=== PATIENT | female | born 1985 | race Caucasian/White ===

== ENCOUNTER 2018-10-09 08:00 | Outpatient (CLI) | payer OTHER ==
[2018-10-09 19:32] LABS: BASOPHILS % (AUTO) 0.3 %; EOSINOPHILS % (AUTO) 0.4 %; HGB - HEMOGLOBIN 11.7 g/dL (12.0-16.0); LYMPHOCYTES # (AUTO) 1.7 10^3/uL (1.5-3.5); LYMPHOCYTES % (AUTO) 22.9 %; MEAN CORPUSCULAR HEMOGLOBIN 31.5 pg (27.0-31.0); MEAN CORPUSCULAR HGB CONC 32.6 g/dL (32.0-36.0); MEAN CORPUSCULAR VOLUME 96.5 fL (81.0-99.0); MEAN PLATELET VOLUME 10.6 fL (7.9-10.8); MONOCYTES # (AUTO) 0.5 10^3/uL (0.0-1.0); MONOCYTES % (AUTO) 6.8 %; NEUTROPHILS % (AUTO) 68.8 %; PLT - PLATELET COUNT 236 10^3/uL (130-450); RED BLOOD COUNT 3.72 10^6/uL (4.20-5.40); RED CELL DISTRIBUTION WIDTH 12.6 % (12.0-15.0); WHITE BLOOD COUNT 7.2 x10^3/uL (4.8-10.8)
[2018-10-09 19:34] LABS: BILIRUBIN,URINE NEGATIVE (NEGATIVE); GLUCOSE, URINE (UA) NEGATIVE (NEGATIVE); KETONES,URINE (UA) NEGATIVE (NEGATIVE); LEUKOCYTE ESTERASE, URINE NEGATIVE (NEGATIVE); NITRITE,URINE NEGATIVE (NEGATIVE); OCCULT BLOOD,URINE NEGATIVE (NEGATIVE); PROTEIN,URINE NEGATIVE (NEGATIVE); UROBILINOGEN,URINE 0.2 (NORMAL) E.U./dL (NORMAL)
[2018-10-09 19:39] LABS: CLARITY,URINE CLEAR (CLEAR)
[2018-10-09 20:37] LABS: % IRON SATURATION 21 % (20-50); IRON 118 ug/dL (28-170); TOTAL IRON BINDING CAPACITY 570 ug/dL (250-450); TRANSFERRIN 407 mg/dL (192-382)
== END 2018-10-09 08:01 | disposition home or self-care (01) ==
LOC: LAB.WCP 08:00
PROVIDERS: ATTEND Nurse Practitioner Obstetrics & Gynecology
DX: Z36.89 Encounter for other specified antenatal screening (principal); Z33.1 Pregnant state, incidental; D50.9 Iron deficiency anemia, unspecified
CPT/HCPCS: 36415; 81001; 81003; 82728; 82950; 83540; 84466; 85025; 86850; 87086

== ENCOUNTER 2018-12-25 06:30 | Outpatient (CLI) | payer OTHER ==
[2018-12-25 07:05] VITALS: BP 123/80
--- NOTE | 2019-01-02 12:22 | PROVIDER PROGRESS NOTE ---
- HPI Chief Complaint: Labor Check Current : Current EDU 12/21/18 Gestation 40 Weeks and 4 Days 2 Para 1 Vital Signs Temperature 36.6 C 12/25/18 07:03 Heart Rate 98 12/25/18 07:03 Respiratory Rate 12/25/18 07:03 Blood Pressure 123/80 12/25/18 07:03 O2 Saturation 100 12/25/18 07:03 Temperature 36.6 C 12/25/18 07:03 Heart Rate 98 12/25/18 07:03 Respiratory Rate 12/25/18 07:03 Blood Pressure 123/80 12/25/18 07:03 O2 Saturation 100 12/25/18 07:03 - Procedures OB Procedure Performed: NST NST Procedure: NST Procedure Start Date 12/25/18 Start Time 06:40 Stop Time 07:30 Vibroacoustic Stimulation Used No Patient States Movement Yes Findings: Pt was scheduled for induction of Labor but because of a busy L&D unit decided to postpone induction for PM. Pt under stands and agrees.
== END 2018-12-25 07:40 | disposition home or self-care (01) ==
LOC: WFO 06:30 → FBP 06:47 → WFO 07:40
PROVIDERS: ATTEND Obstetrics & Gynecology
DX: O48.0 Post-term pregnancy (principal); Z3A.40 40 weeks gestation of pregnancy
CPT/HCPCS: 59025

== ENCOUNTER 2018-12-25 18:00 | Inpatient (IN) | payer OTHER ==
[2018-12-25] MEDS ORDERED: ONDANSETRON 4 MG/2 ML VIAL IVP PRN (19:09)
[2018-12-25] MEDS ORDERED: METOCLOPRAMIDE 10 MG/2 ML VIAL IVP PRN (19:09)
[2018-12-25] MEDS ORDERED: AMPICILLIN 2 GM in SODIUM CHLORIDE 0.9% MINIBAG 100 ML IV ONE (19:09)
[2018-12-25] MEDS ORDERED: METHYLERGONOVINE 0.2 MG/ML AMP IM PRN (19:09)
[2018-12-25] MEDS ORDERED: OXYTOCIN/DEXTROSE 5 % 30 UNIT/500 ML BAG IV PRN (19:09)
[2018-12-25] MEDS ORDERED: miSOPROStol 200 MCG TABLET PR ONE (19:09)
[2018-12-25] MEDS ORDERED: CARBOPROST TROMETHAMINE 250 MCG/ML AMP IM PRN (19:09)
[2018-12-25] MEDS ORDERED: fentaNYL 100 MCG/2 ML VIAL IVP PRN (19:09)
[2018-12-25] MEDS ORDERED: SODIUM CHLORIDE FLUSH 0.9% 10 ML SYRINGE IVP PRN (19:09)
[2018-12-25] MEDS ORDERED: METOCLOPRAMIDE 10 MG TABLET PO PRN (19:09)
[2018-12-25] MEDS ORDERED: ONDANSETRON ODT 4 MG TABLET TL PRN (19:09)
[2018-12-25] MEDS ORDERED: miSOPROStol 200 MCG TABLET PR PRN (19:09)
--- NOTE | 2018-12-25 19:15 | HISTORY & PHYSICAL EXAMINATION ---
Admit History - Visit Reason Visit Reason: Other - : 2 Parity: 1 Risk/History: positive: None Complications This : positive: Treated for GBS/UTI Smoking Status: Former smoker - Mother's Labs Mother's Blood Type: positive: A Mother's RH: positive: Positive GBS: positive: Group B Strep Positive Rubella Status: positive: Immune - Other Maternal History Other Maternal History: Patient is a 33-year-old G2, P1 at 40 weeks 4 days estimated gestational age with a complicated by GBS bacteriuria. Patient presents for an induction of labor for postdates. has been complicated by GBS bacteriuria. Otherwise no significant complications. Has had a history of x1 after induction of labor at 41 weeks. No history of STIs. Denies vaginal bleeding/contractions/loss of fluid. Endorses movement. Review of Systems - Other Findings Other Findings: As per HPI otherwise remaining systems are negative. Physical - Abdominal Exam Contraction Intensity: positive: Irritability Uterine Resting Tone: positive: Soft - Monitoring Strip Review: positive: Category I - Presentation Presentation: positive: Vertex - Vaginal Exam Membranes: positive: Membranes intact Dilation (in cm): 1 Station: positive: -2 Cervical Position: positive: Midposition - Speculum Exam Speculum Exam Performed: positive: No - Other Notes Labor Progress Note/Additional Text: SVE 1/40%/-2/mid/medium Vertex confirmed by bedside ultrasound. Plan for Labor - Plan For Labor Plan for Labor: 33-year-old G2, P1 at 40 weeks 4 days EGA here for postdates induction of labor. IOL: -Unfavorable cervix at 1/40%/-2/medium/mid -We will proceed with cervical ripening with misoprostol 50 mcg BC every 4 hours for up to 6 doses. -Reviewed role in application of Holt balloon. Patient has had this experience in the past. Will place once cervix more favorable. -Pitocin once cervix is more favorable. Reviewed risks and benefits. -AROM when GBS prophylaxis is adequate/timing is appropriate. -Risks/benefits/alternatives reviewed. Written informed consent was obtained. FWB: -Category 1 tracing -Vertex -GBS positive; ampicillin per GBS PPX protocol -Denies history of HSV Pain: -Fentanyl 50 mcg IV available up to 7 cm dilated and not to exceed 200 mcg total. -Nitrous oxide as patient desires -Epidural as patient desires Anticipate
[2018-12-25] MEDS ORDERED: OXYTOCIN/DEXTROSE 5 % 30 UNIT/500 ML BAG IV SCH (20:00)
[2018-12-25] MEDS: miSOPROStol 100 MCG TABLET BC SCH (20:53)
[2018-12-25 21:04] LABS: BASOPHILS % (AUTO) 0.3 %; EOSINOPHILS # (AUTO) 0.1 10^3/uL (0.0-0.7); EOSINOPHILS % (AUTO) 0.6 %; HGB - HEMOGLOBIN 12.3 g/dL (12.0-16.0); LYMPHOCYTES # (AUTO) 2.1 10^3/uL (1.5-3.5); LYMPHOCYTES % (AUTO) 23.6 %; MEAN CORPUSCULAR HEMOGLOBIN 31.5 pg (27.0-31.0); MEAN CORPUSCULAR HGB CONC 34.6 g/dL (32.0-36.0); MEAN CORPUSCULAR VOLUME 91.3 fL (81.0-99.0); MONOCYTES # (AUTO) 0.6 10^3/uL (0.0-1.0); MONOCYTES % (AUTO) 6.4 %; NEUTROPHILS % (AUTO) 68.3 %; PLT - PLATELET COUNT 208 10^3/uL (130-450); RED CELL DISTRIBUTION WIDTH 12.9 % (12.0-15.0); WHITE BLOOD COUNT 8.7 x10^3/uL (4.8-10.8)
[2018-12-26] MEDS ORDERED: SODIUM CHLORIDE FLUSH 0.9% 10 ML SYRINGE IVP SCH (01:00)
[2018-12-26] MEDS: miSOPROStol 100 MCG TABLET BC SCH ×2 (01:10→05:00)
[2018-12-26] MEDS: AMPICILLIN 1 GM in SODIUM CHLORIDE 0.9% MINIBAG 100 ML IV SCH ×6 (01:10→21:48)
--- NOTE | 2018-12-26 09:16 | PROVIDER PROGRESS NOTE ---
Labor Progress Note - Uterine Monitoring : 2-3 Contraction Intensity: positive: Moderate - Monitoring Monitor Mode: positive: External ultrasound Heart Rate Baseline: 145 Heart Rate Variability: positive: Moderate (6-25 bmp) Accelerations: positive: Present, 15x15 Decelerations: positive: None Strip Review: positive: Category I - Vaginal Exam Dilation (in cm): 3 Effacement (%): 23 Station: -3 Cervical Position: Posterior - Labor Progress Note Labor Progress Note/Additional Text: Cx is 3 cm. jesica every 2-3 min. not able to repeat cytotec. Start pitocin.
[2018-12-26] MEDS ORDERED: OXYTOCIN/DEXTROSE 5 % 30 UNIT/500 ML BAG IV SCH (10:00)
[2018-12-26] MEDS: LACTATED RINGERS 1,000 ML IV SCH ×3 (10:55→20:06)
--- NOTE | 2018-12-26 12:31 | PROVIDER PROGRESS NOTE ---
Labor Progress Note - Uterine Monitoring Uterine Monitoring Mode: positive: External toco Contraction Frequency (min/apart): 3 Contraction Intensity: positive: Moderate Uterine Resting Tone: positive: Soft - Monitoring Heart Rate Baseline: 135 Heart Rate Variability: positive: Moderate (6-25 bmp) Accelerations: positive: Present, 15x15 Decelerations: positive: None Strip Review: positive: Category I - Vaginal Exam Dilation (in cm): 3 Effacement (%): 50 Station: -3 Cervical Position: Posterior - Labor Progress Note Labor Progress Note/Additional Text: Not able to AROM.
[2018-12-26] MEDS ORDERED: fent/BUPIV 2 MCG/0.125% 250 ML EP ONE (15:50)
[2018-12-26] MEDS ORDERED: diphenhydrAMINE INJ 50 MG/ML VIAL IVP PRN (16:33)
[2018-12-26] MEDS ORDERED: ePHEDrine 50 MG/ML VIAL IVP PRN (16:33)
[2018-12-26] MEDS ORDERED: NALBUPHINE 10 MG/ML AMP IVP PRN (16:33)
[2018-12-26] MEDS ORDERED: LACTATED RINGERS 500 ML IV ONE (16:33)
[2018-12-26] MEDS ORDERED: METOCLOPRAMIDE 10 MG/2 ML VIAL IVP PRN (16:33)
[2018-12-26] MEDS ORDERED: ONDANSETRON 4 MG/2 ML VIAL IVP PRN (16:33)
[2018-12-26] MEDS ORDERED: NALOXONE 0.4 MG/ML VIAL IVP PRN (16:33)
[2018-12-26] MEDS ORDERED: fent/BUPIV 2 MCG/0.125% 250 ML EP PRN (16:34)
--- NOTE | 2018-12-26 16:38 | ANESTHESIA ---
Pre-Anesthesia VS, & Labs - Diagnosis Active labor/pain - Procedure Continuous labor epidural Height 5 ft 6 in Weight (kg) 75.75 kg - NPO Other (ice chips) - Is Patient ?: Yes - Lab Results Current Lab Results: Laboratory Tests 12/25/18 20:40: WBC 8.7, RBC 3.90 L, Hgb 12.3, Hct 35.6 L, MCV 91.3, MCH 31.5 H, MCHC 34.6, RDW 12.9, Plt Count 208, MPV 11.0 H, Neut # (Auto) 6.0, Lymph # (Auto) 2.1, [place] # (Auto) 0.6, Eos # (Auto) 0.1, Baso # (Auto) 0.0, Absolute Nucleated RBC 0.00, Nucleated RBC % 0.0 Fish Bones: 12/25/18 20:40 Home Medications and Allergies Active Medications Carboprost Tromethamine (Hemabate) 250 mcg IM ONCE PRN PRN Reason: Post- Hemorrhage Stop: 12/26/18 19:08 Diphenhydramine HCl (Benadryl Inj) 12.5 - 25 mg IVP Q6HR PRN PRN Reason: ITCHING Ephedrine Sulfate () 5 mg IVP Q5M PRN PRN Reason: For SBP<100;give until SBP>100 Fentanyl (Fentanyl) 50 mcg IVP Q1H PRN PRN Reason: PAIN Ampicillin Sodium 1 gm/ Sodium (Chloride) 100 mls @ 200 mls/hr IV Q4H [facility] Last Admin: 12/26/18 13:31 Dose: 200 mls/hr Lactated Ringer's (Lr) 1,000 mls @ 100 mls/hr IV .Q10H [facility] Last Admin: 12/26/18 16:21 Dose: 100 mls/hr OXYTOCIN/DEXTROSE 5 % (Pitocin/Dextrose 5%) 30 unit in 500 mls @ 1 mls/hr IV TITR MADELAINE; Protocol OXYTOCIN/DEXTROSE 5 % (Pitocin/Dextrose 5%) 30 unit in 500 mls @ 999 mls/hr IV PRN PRN; Protocol PRN Reason: POST- HEMORR PREVENTION OXYTOCIN/DEXTROSE 5 % (Pitocin/Dextrose 5%) 30 unit in 500 mls @ 1 mls/hr IV TITR [facility]; Protocol Last Titration: 12/26/18 16:34 Dose: 10 milliunit/min, 10 mls/hr Lactated Ringer's (Lr) 500 mls @ 999 mls/hr IV ONCE ONE Stop: 12/26/18 17:03 Methylergonovine Maleate (Methergine Inj) 0.2 mg IM Q4H PRN PRN Reason: Post- Hemorrhage Metoclopramide HCl (Reglan) 5 mg PO Q6H PRN PRN Reason: Nausea / Vomiting Metoclopramide HCl (Reglan Inj) 5 mg IVP Q6H PRN PRN Reason: Nausea / Vomiting Metoclopramide HCl (Reglan Inj) 10 mg IVP Q6HR PRN PRN Reason: Nausea / Vomiting Misoprostol (Cytotec) 50 mcg BC Q4HR [facility] Stop: 12/26/18 17:01 Last Admin: 12/26/18 05:00 Dose: 50 mcg Misoprostol (Cytotec) 800 mcg FL ONCE PRN PRN Reason: Post- Hemorrhage Stop: 12/26/18 19:08 Nalbuphine HCl (Nubain) 2.5 - 5 mg IVP Q4H PRN PRN Reason: ITCHING Naloxone HCl (Narcan) 0.1 mg IVP Q2M PRN PRN Reason: RR<8 Ondansetron HCl (Zofran Inj) 4 mg IVP Q4HR PRN PRN Reason: Nausea / Vomiting Ondansetron HCl (Zofran Odt) 4 mg TL Q4HR PRN PRN Reason: Nausea / Vomiting Ondansetron HCl (Zofran Inj) 4 mg IVP Q6HR PRN PRN Reason: Nausea / Vomiting Sodium Chloride (Normal Saline Flush 0.9%) 10 ml IVP 0100,0900,1700 [facility] Last Admin: 12/26/18 09:15 Dose: 10 ml Sodium Chloride (Normal Saline Flush 0.9%) 10 ml IVP PRN PRN PRN Reason: NEEDED PER PROVIDER ORDERS Allergies/Adverse Reactions: Allergies Allergy/AdvReac Type Severity Reaction Status Date / Time No Known Drug Allergies Allergy Verified 12/25/18 20:11 Anes History & Medical History - Anesthetic History Anesthesia Complications: reports: No previous complications Family history of Anesthesia Complications: Denies Family history of Malignant Hyperthermia: Denies - Medical History Cardiovascular: reports: None Pulmonary: reports: None Gastrointestinal: reports: None Urinary: reports: None Neuro: reports: None Musculoskeletal: reports: None Endocrine/Autoimmune: reports: None Blood Disorders: reports: None Smoking Status: Former smoker Psychosocial: reports: No issues indicated - Obstetrical History : 2 Parity: 1 Events: positive: None Complications: positive: Treated for GBS/UTI Exam General: Alert, Oriented x3, Mild distress Dental: WNL Mouth Opening: Greater than 4 Fingerbreadths Neck Mobility: Normal Mallampati classification: II Thyromental Distance: greater than 6 cm Respiratory: Lungs clear Cardiovascular: Regular rate Neurological: Normal speech Mental/Cognitive Status: Alert/Oriented X3, Normal for patient Cognitive Status: Within normal limits Plan Anesthesia Type: Epidural Consent for Procedure(s) Verified and Reviewed: Yes Code Status: Attempt Resuscitation ASA classification: 2-Mild systemic disease Is this case an emergency?: Yes
--- NOTE | 2018-12-26 17:03 | PROVIDER PROGRESS NOTE ---
Labor Progress Note - Uterine Monitoring Contraction Intensity: positive: Moderate to strong Uterine Resting Tone: positive: Soft - Monitoring Monitor Mode: positive: External ultrasound Heart Rate Baseline: 130 Heart Rate Variability: positive: Moderate (6-25 bmp) Accelerations: positive: Present, 15x15 Decelerations: positive: Variable Strip Review: positive: Category I - Vaginal Exam Dilation (in cm): 4 Effacement (%): 30 Station: -3 Cervical Position: Posterior - Labor Progress Note Labor Progress Note/Additional Text: blabber full SROM clear. Epidural working.
[2018-12-26] MEDS ORDERED: TERBUTALINE 1 MG/ML VIAL SUBQ ONE (20:22)
--- NOTE | 2018-12-26 20:37 | PROVIDER PROGRESS NOTE ---
Labor Progress Note - Uterine Monitoring Uterine Monitoring Mode: positive: External toco : 6 Contraction Intensity: positive: Moderate to strong Uterine Resting Tone: positive: Soft - Monitoring Monitor Mode: positive: External ultrasound Heart Rate Baseline: 130 Accelerations: positive: Absent Decelerations: positive: Late Strip Review: positive: Category II (deceleration down to the 90 for 1 min. times 2. pit off. terbutaline 0.25, O2, bolis. prolaps cord ruled out.) - Labor Progress Note Labor Progress Note/Additional Text: decelerations resolved acceleration returning.
--- NOTE | 2018-12-26 21:50 | PROVIDER PROGRESS NOTE ---
Labor Progress Note - Uterine Monitoring : 2 Contraction Intensity: positive: Strong Uterine Resting Tone: positive: Soft - Monitoring Monitor Mode: positive: External ultrasound Heart Rate Baseline: 130 Heart Rate Variability: positive: Moderate (6-25 bmp) Accelerations: positive: Present, 15x15 Decelerations: positive: None Strip Review: positive: Category I - Vaginal Exam Dilation (in cm): 8 Effacement (%): 100 Station: 0 Cervical Position: Anterior - Labor Progress Note Labor Progress Note/Additional Text: excellent progress not on Pit
[2018-12-26] MEDS ORDERED: HYDROCORTISONE 1% CREAM 28 GM TUBE PR PRN (23:06)
[2018-12-26] MEDS ORDERED: WITCH HAZEL/GLYCERIN 1 PAD TOP PRN (23:06)
[2018-12-26] MEDS ORDERED: oxyCODONE 5 MG TABLET PO PRN (23:06)
--- NOTE | 2018-12-26 23:14 | DELIVERY NOTE ---
Delivery Note - Labor Labor: positive: Augmented by oxytocin - Infant Delivery Method Delivery Method: positive: Spontaneous vaginal delivery - Cervical Ripening Method Cervical Ripening Method: positive: Misoprostil - Presentation Presentation: positive: Vertex, [place] - right occiput anterior, ROP - right occiput posterior - Nuchal Cord Nuchal Cord: positive: None - Anesthetic Anesthetic Type: Volume: positive: Other (10) - Amniotic Fluid Description Amniotic Fluid Description: positive: Clear - Vacuum Use Indication for Vacuum Use: positive: Suspicion of immediate or potential compromise Type of Vacuum Cup: positive: Cup: Reddy Type Vacuum Extraction: positive: Successful Number of pop-offs: 0 - Episiotomy Type Episiotomy Type: positive: Midline (second degree) - Suture Suture Type: positive: Vicryl Suture Size: positive: 3-0 - Delivery Outcome Delivery Outcome: positive: Livebirth - : positive: Placed in direct skin contact with mother, Bulb syringe, Stimulated, [place] used sex: positive: Female (Apgars 8/9) - Cord Cord: positive: 3 vessels - Placenta Placenta: positive: Intact, Spontaneous, Abnormal (biloabed) - Post Delivery Events Post Delivery Events: positive: Shoulder dystocia (4 min, Mc Hyde, suprapubic pressure, episotomy delivery.) - Delivery Comments (Free Text/Narrative) Delivery Comments (Free Text/Narrative): Pt SROM at 1650 clear fluid. Pt had an episode of tachysystoly with bradycardia. responded to terb, stop pit and O2. continued with reactive strip to complete. with pushing developed bardycardia to the 90. At +3 a vacuum was applied to shorten the second stage Pulled with 3 contractions and good progress. Head delivered and a shoulder dystocia of 4 min encountered. following Mc [place], supra pubic pressure, an episotomy was cut. the left shoulder was delivered. care was taken to minimize traction to the left shoulder. delivery was compleated at 1039. Placent followed at 1046. second degree was closed with 3 0 vicril. EBL 300 ml.
[2018-12-26] MEDS ORDERED: LACTATED RINGERS 1,000 ML IV SCH (23:45)
[2018-12-27] MEDS: ACETAMINOPHEN 325 MG TABLET PO PRN ×4 (00:52→18:10)
[2018-12-27] MEDS: IBUPROFEN 600 MG TABLET PO SCH ×4 (00:52→20:23)
[2018-12-27] MEDS: DOCUSATE SODIUM 100 MG CAPSULE PO PRN ×2 (11:22→20:24)
--- NOTE | 2018-12-27 18:04 | PROVIDER PROGRESS NOTE ---
Subjective - Prog Note Date Prog Note Date: 12/27/18 Prog Note Time: 12:00 - Subjective Subjective: PPD#1 s/p Doing very well. Up and ambulating. Tolerating po. Pain well managed. Voiding. No complaints Objective - Vital Signs/Intake & Output Vital Signs: Vital Signs x48h Temp Pulse Resp BP Pulse Ox 12/27/18 15:39 98.4 F 77 18 110/68 99 12/27/18 12:29 98.2 F 89 19 116/84 H 99 Intake & Output: Intake & Output 12/24/18 12/25/18 12/26/18 12/27/18 23:59 23:59 23:59 23:59 Intake Total 100 3079.599 1688.734 Output Total 775 400 Balance 100 2304.599 1288.734 - Objective General Appearance: positive: No acute distress Neck: positive: Nml inspection Respiratory: positive: Chest non-tender, No respiratory distress Cardiovascular: positive: Regular rate & rhythm Abdomen: positive: Non-tender, Other (FF below umbi) Back: positive: Nml inspection Skin: positive: Color nml Extremities: positive: Non-tender - Lab Results Fish Bones: 12/25/18 20:40 - Other Results/Comments Other Results/Comments: PPD#1 s/p Routine pp care Late pm delivery Anticipate DC home in am
[2018-12-28] MEDS: ACETAMINOPHEN 325 MG TABLET PO PRN ×2 (04:13→08:06)
[2018-12-28] MEDS: IBUPROFEN 600 MG TABLET PO SCH ×2 (04:14→10:30)
[2018-12-28] MEDS: DOCUSATE SODIUM 100 MG CAPSULE PO PRN (08:06)
--- NOTE | 2018-12-28 08:21 | PROVIDER PROGRESS NOTE ---
Subjective - Prog Note Date Prog Note Date: 12/28/18 Prog Note Time: 08:18 - Subjective Subjective: Rae is doing well. No issues with pain. Minimal lochia. Voiding and ambulating. Tolerating po. BF going well. Ready for discharge. Objective - Vital Signs/Intake & Output Vital Signs: Vital Signs x48h Temp Pulse Resp BP 12/28/18 06:22 98.2 F 76 16 116/65 12/28/18 04:41 98.1 F 72 18 112/66 12/28/18 01:00 98.4 F 78 18 118/72 Intake & Output: Intake & Output 12/25/18 12/26/18 12/27/18 12/28/18 23:59 23:59 23:59 23:59 Intake Total 100 3079.599 2188.734 500 Output Total 775 400 Balance 100 2304.599 1788.734 500 - Objective General Appearance: positive: No acute distress Neck: positive: Nml inspection Respiratory: positive: No respiratory distress Cardiovascular: positive: Regular rate & rhythm Rectal: positive: Non-tender, Other (FF below umbi) Back: positive: Nml inspection Skin: positive: Color nml Extremities: positive: Non-tender - Lab Results Fish Bones: 12/25/18 20:40 Assessment/Plan - Problem List (1) Vaginal delivery Impression: PPD#2 s/p Meeting goals for discharge Routine dc instructions given Declines rx for ibuprofen and tylenol DC to home
[2018-12-28 08:42] VITALS: BP 113/73
--- NOTE | 2018-12-28 12:31 | Labor Flowsheet ---
Labor Flowsheet Datetime Report Generated by CPN: 12/28/2018 12:31 Datetime: 12/27/2018 15:40 VITAL SIGNS NBP Sys/Anu/Mean (mmHg): 110 : 68 : 78 Pulse: 79 LaborFlag: Labor Datetime: 12/27/2018 08:20 SpO2 (%): 99 Datetime: 12/26/2018 22:46 Station Vacuum/Forceps Applied: +3 Datetime: 12/26/2018 22:36 STAGE 2 Pushing: Coached on Pushing Stage 2 Comments: Head delivered Datetime: 12/26/2018 22:34 Pushing Position: Pushing with Contractions; Pushing Lithotomy Pushing Progress: Descent with Pushing Vacuum: On Datetime: 12/26/2018 22:25 UTERINE ACTIVITY Monitor Mode: External Frequency (min): 2 Quality: Strong Duration (sec): 60 Resting Tone (Palpate): Relaxed ASSESSMENT A Monitor Mode: External US FHR Baseline Rate : 130 Variability: Moderate 6-25 bpm Accelerations: None Decelerations: Variable Category: Category II Comments: Variables to 90 with each ctx. Pt coached on pushing. Pain Presence: Intermittent Pain Type: Cramping Pain Location: Abdomen; Back Pain Relief Measures: Comfort Measures Pain Coping: Breathing Through Contractions Pain Assessment Comments: Pt states pain is mostly low abd pressure Oxygen Method: Face Mask Comfort Measures: Coaching Datetime: 12/26/2018 22:15 TEACHING Instructional Method: Patient Instructed Labor/Induction: Pushing Methods Datetime: 12/26/2018 22:10 VAGINAL EXAM Dilatation (cm): 10.0 Effacement (%): 100 Station: 1 Exam by: Dr. Torres Datetime: 12/26/2018 22:01 Stage of : Labor Temperature (C): 38.6 Provider Reviewed Strip: Yes Strip Reviewed by: Dr. Torres COMMUNICATION Communication: Provider at Bedside Notification Reason: Status Update Communication Comments: Provider aware of FHR status. Discussing plan of care with pt. Datetime: 12/26/2018 21:45 Pattern: Normal: <= 5 Contractions in 10 Minutes Contraction Comments: Pitocin remains off Datetime: 12/26/2018 21:31 Monitor Interventions for UA: Council Adjusted Monitor Interventions for FHR: Ultrasound Adjusted PAIN Pain Scale: 4 Datetime: 12/26/2018 21:00 Pitocin Checklist: No More than 5 Uterine Contractions in 10 Minutes for any 20 Minute Interval; Ut erus Palpates Soft between Contractions Oxygen Amount (LPM): 10 Datetime: 12/26/2018 20:30 FHR Baseline Changes: No Baseline Change Actions for Decelerations: Side to Side; Hands and Knees; Oxygen Applied; Pitocin Off; IV Hugo us; Sterile Vaginal Exam Datetime: 12/26/2018 20:20 Tocolytics: Terbutaline 0.25mg Subcutaneous PATIENT CARE IV/Blood Work: IV Bolus Given ml @ 500 Hygiene: Pamela Care Datetime: 12/26/2018 20:18 Vaginal Bleeding: None Cervix, Position: Anterior Datetime: 12/26/2018 20:14 Patient Position/Activity: Left Lateral Datetime: 12/26/2018 20:09 Provider Notified (Name): Dr. Giem Datetime: 12/26/2018 20:00 Anesthesia Level Check: T10- Umbilicus Datetime: 12/26/2018 19:57 MEDICATIONS Pitocin (milliunits): Discontinued Datetime: 12/26/2018 19:43 Cervix, Consistency: Moderate Datetime: 12/26/2018 19:23 Anesthesia Comments: Pt reports right lower quadrant window of pain with contractions, left leg num bness. Position changed to right lateral. Datetime: 12/26/2018 18:59 Patient Care Comments: peanut ball Datetime: 12/26/2018 18:29 Antibiotics: Ampicillin IV 1 Gm Datetime: 12/26/2018 17:05 I/O Interventions: Holt Cath Inserted Datetime: 12/26/2018 16:50 Membrane Status: Ruptured Membranes Rupture Method: Spontaneous Amniotic Fluid Color: Clear Amniotic Fluid Amount: Large Amniotic Fluid Odor: Normal Nitrazine: Positive Datetime: 12/26/2018 16:20 Epidural Procedure Other: Pump Started Datetime: 12/26/2018 16:09 Epidural Procedure: Loading Dose Datetime: 12/26/2018 16:00 ANESTHESIA Anesthesia Plans: Local Datetime: 12/26/2018 15:50 PROCEDURE TIME OUT Procedure Type: epidural Procedure Verify: Correct Patient Identity; Correct Side and Site are Marked; Accurate Procedure Co nsent Form; Agreement on Procedure to be Done; Correct Patient Position; Relevant Images and Results are Properly Labeled and Displayed; Addressed Need to Administer Antibiotics or Fluids for Irrigation ; Safety Precautions Based on Patient History or Medication Use Epidural Positioning: Sitting Datetime: 12/26/2018 11:49 Respirations: 18 Temperature Route: Oral Datetime: 12/26/2018 07:30 MATERNAL ASSESSMENT DTR's/Clonus: DTRs 2+ Datetime: 12/26/2018 05:00 Cervical Ripening Agents: Cervidil; Cytotec @
--- NOTE | 2019-01-13 00:07 | DISCHARGE SUMMARY ---
"Discharge Summary Admit Date: 12/25/18 Discharge Date: 12/28/18 Discharging Provider: Alison Dickinson MD Code Status: Attempt Resuscitation Condition at Discharge: Good Discharge Disposition: 01 Home, Self Care - DIAGNOSES Admission Diagnoses: IUP at 40+4 wga Induction of labor GBS bacteruria Discharge Diagnoses with Status of Each Condition: Same and delivery of term gestation via vacuum assisted vaginal delivery Shoulder dystocia 4 minutes in duration - HPI History of Present Illness: Patient is a 33-year-old G2, P1 at 40 weeks 4 days estimated gestational age with a complicated by GBS bacteriuria. Patient presented for an induction of labor for postdates. has been complicated by GBS bacteriuria. Otherwise no significant complications. Has had a history of x1 after induction of labor at 41 weeks. No history of STIs. Denies vaginal bleeding/contractions/loss of fluid. Endorsed movement. - CONSULTS | PROCEDURES Consultations: Anesthesia for epidural placement Procedures: Vacuum assisted vaginal delivery - HOSPITAL COURSE Hospital Course: Patient is a 33-year-old G2, P1 at 40 weeks and 4 days estimated gestational age admitted for induction of labor. complicated by GBS bacteriuria. Initial SVE was 1/40%/-2/medium/mid. Cervical ripening was performed with administration of misoprostol 50 mcg buccal. At 3 cm dilation, she was started on Pitocin for augmentation. She received adequate treatment with ampicillin for GBS prophylaxis. She received an epidural for pain management. Spontaneous rupture of membranes noted at at 16:58 on 12/26/18, notable for passage of clear fluid. During stage I labor, tracing showed episode of tachysystole followed with bradycardia. Pitocin was stopped and terbutaline was administered with appropriate response. She continued to complete dilation with a category 1 tracing. During stage II of la bor, tracing showed bradycardia to the 90s. At +3 station a vacuum- assisted delivery was performed. Fetus was delivered after 3 contractions with no pop offs. A shoulder dystocia lasting 4 minutes in duration was encountered; relieved with Mir, suprapubic pressure, and an episiotomy was cut. Delivery note indicates the left shoulder was delivered anteriorly. Delivery was completed at 10:39 AM. Placenta followed at 10:46 am. Second-degree laceration was repaired with 3-0 Vicryl. EBL was 300 cc. course was uncomplicated. By day 2, patient was meeting goals for discharge and was discharged home. She declined discharge medications. - ALLERGIES Allergies/Adverse Reactions: Allergies Allergy/AdvReac Type Severity Reaction Status Date / Time No Known Drug Allergies Allergy Verified 12/25/18 20:11 - MEDICATIONS Home Medications Other | Comments: Declined discharge medications - LABS Result Diagrams: 12/25/18 20:40 - FOLLOW UP Follow Up: Follow-up in 6 weeks for routine care - TIME SPENT Time Spent in Discharge (Minutes): 30"
== END 2018-12-28 12:00 | disposition home or self-care (01) | DRG 807 ==
LOC: WFO 18:00 → FBP 18:03 → WFO 19:08 → FBP 19:09
PROVIDERS: ADMIT Obstetrics & Gynecology; ATTEND Obstetrics & Gynecology
PROC: 10D07Z6 Extraction of Products of Conception, Vacuum, Via Natural or Artificial Opening (ICD-10-PCS; principal; 2018-12-26)
PROC: 0W8NXZZ Division of Female Perineum, External Approach (ICD-10-PCS; 2018-12-26)
DX: O48.0 Post-term pregnancy (principal); Z37.0 Single live birth; Z3A.40 40 weeks gestation of pregnancy; O99.824 Streptococcus B carrier state complicating childbirth; O66.0 Obstructed labor due to shoulder dystocia; O64.0XX0 Obstructed labor due to incomplete rotation of fetal head, not applicable or unspecified; O76 Abnormality in fetal heart rate and rhythm complicating labor and delivery; Z87.891 Personal history of nicotine dependence; Z87.440 Personal history of urinary (tract) infections
CPT/HCPCS: 59025; 85025; A9270; J7120